=== PATIENT | male | born 1995 | race Two or more races ===

== ENCOUNTER 2024-11-27 15:00 | Emergency (ER) | payer OTHER ==
[~2024-11-27] VITALS: Ht 167.6 cm; Wt 77.2 kg
[2024-11-27 18:12] VITALS: PULSE 54; TEMP 98.3
[2024-11-27] MEDS ORDERED: NAPROSYN500 MG PO (18:22)
[2024-11-27 21:33] VITALS: RESP 16
[2024-11-27 21:34] VITALS: BP 115/63; O2SAT 100
== END 2024-11-27 21:32 | disposition home or self-care (01) ==
LOC: FSED 15:06
DX: N50.812 Left testicular pain (principal); F17.210 Nicotine dependence, cigarettes, uncomplicated
CPT/HCPCS: 76870; 81003; 99283